=== PATIENT | male | born 1955 | race Caucasian/White ===

== ENCOUNTER 2016-11-03 10:18 | Emergency (ER) | payer MEDICAID, OTHER ==
[~2016-11-03] VITALS: Ht 182.9 cm; Wt 74.8 kg
[~2016-11-03 10:18] MED LIST: INSU3INS6 SQ; LAMO200T32 PO; METF500T4 PO; OXYC5TAB3 PO; TRAM50TA2 PO
[2016-11-03] MEDS ORDERED: LIDOCAINE 1%-EPI 1:100,000 50 ML VIAL IJ ONE (11:00)
[2016-11-03 11:02] VITALS: BP 145/77
== END 2016-11-03 11:29 | disposition home or self-care (01) ==
LOC: ER 10:21
DX: L02.11 Cutaneous abscess of neck (principal); G40.909 Epilepsy, unspecified, not intractable, without status epilepticus; E11.69 Type 2 diabetes mellitus with other specified complication; Z79.4 Long term (current) use of insulin; A04.7 Enterocolitis due to Clostridium difficile
CPT/HCPCS: 10060; 99283; A6402; A6403; J3490; Z7610; A4606

== ENCOUNTER 2016-12-28 11:15 | Inpatient (IN) | payer BC, MEDICAID ==
[~2016-12-28] VITALS: Ht 185.4 cm; Wt 93.9 kg
--- NOTE | 2016-12-28 11:20 | NUR ---
PT BIB [facility] S/P "FOCAL" SEIZURE PER REHAB STAFF. PT DOES NOT APPEAR POSTICTAL. A/OX4. 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 REPORTS LOSS OF BOWEL CONTINENCE PROCESS DESIGN CHEMICAL ENGINEER AFTER WHICH PT C/O 04/24 ABD PAIN. DENIES WATERY STOOLS BUT REPORTS SOFT LOOSE STOOL WITH HX OF CDIFF IN AUGUST. NONAMBULATOY. IN ER BED 11, VSS. RESP EVEN UNLABORED. SKIN WARM NONDIAPHORETIC.
[2016-12-28] MEDS ORDERED: LORAZEPAM INJ 2 MG/ML VIAL IVP ONE (11:30)
[2016-12-28] MEDS ORDERED: ONDANSETRON HCL/PF 4 MG/2 ML VIAL ONE (11:33)
[2016-12-28 11:34] LABS: BASOPHILS % (AUTO) 0.2 % (0.0-2.0); EOSINOPHILS # (AUTO) 0.2 /CMM (0.0-0.7); EOSINOPHILS % (AUTO) 3.6 % (0.0-6.0); HEMATOCRIT 26 % (39-51); HEMOGLOBIN 8.2 g/dL (13.5-17.5); LYMPHOCYTES # (AUTO) 0.9 /CMM (0.8-4.8); LYMPHOCYTES % (AUTO) 15.1 % (20.0-44.0); MEAN CORPUSCULAR HEMOGLOBIN 24 PG (26.0-33.0); MEAN CORPUSCULAR HGB CONC 32 g/dl (31.0-36.0); MEAN CORPUSCULAR VOLUME 75 fL (80-96); MONOCYTES # (AUTO) 0.4 /CMM (0.1-1.30); MONOCYTES % (AUTO) 6.2 % (2.0-12.0); NEUTROPHILS # (AUTO) 4.4 /CMM (1.8-8.9); NEUTROPHILS % (AUTO) 74.9 % (43.0-81.0); PLATELET COUNT (AUTO) 249 /CMM (150-450); RDW COEFFICIENT OF VARIATION 15.2 (11.5-15.0); RED BLOOD CELL COUNT(AUTO) 3.42 MIL/uL (4.5-6.0); WHITE BLOOD COUNT (AUTO) 5.9 K/uL (4.3-11.0)
[2016-12-28] MEDS ORDERED: LORAZEPAM INJ 2 MG/ML VIAL ONE (11:34)
[2016-12-28 11:48] LABS: INR 1.01 (0.87-1.13); PROTHROMBIN TIME 10.6 SECS (9.5-12.7)
[2016-12-28 11:50] LABS: ALBUMIN 2.9 g/dL (3.4-5.0); BILIRUBIN,DIRECT 0.1 mg/dL (0.0-0.2); BILIRUBIN,TOTAL 0.4 mg/dL (0.2-1.0); CALCIUM, SERUM 8.1 mg/dL (8.5-10.1); CREATININE 1.1 mg/dL (0.6-1.3); POTASSIUM 4.2 mmol/L (3.5-5.1); TOTAL PROTEIN, SERUM 7.1 g/dL (6.4-8.2)
[2016-12-28] MEDS ORDERED: ONDANSETRON HCL/PF 4 MG/2 ML VIAL IV ONE (12:00)
--- NOTE | 2016-12-28 12:25 | NUR ---
PT NOTED WITH WHAT APPEARS TO BE BLOOD ON HIS CHIN FROM EARLIER VOMITING. NO VOMITING OR NAUSEA CURRENTLY. MD NOTIFIED.
--- NOTE | 2016-12-28 12:58 | NUR ---
STOOL TESTED FOR OCCULT BLOOD BY DR VALERIO; POSITIVE RESULT. VSS ON 3LPM VIA NC.
[2016-12-28] MEDS ORDERED: IV SET PRIMARY 1 EA INFUS.SET MC ONE (13:15)
[2016-12-28] MEDS ORDERED: PANTOPRAZOLE 40 MG VIAL ONE (13:15)
[2016-12-28] MEDS ORDERED: IV NS 0.9% 1,000 ML ONE (13:15)
[2016-12-28] MEDS ORDERED: IV NS 0.9% 1,000 ML BAG IV ONE (13:30)
[2016-12-28] MEDS ORDERED: PANTOPRAZOLE 40 MG VIAL IV ONE (13:30)
--- NOTE | 2016-12-28 14:13 | NUR ---
REPORT GIVEN TO EDWARDO NOLASCO FOR ADMISSION
[2016-12-28] MEDS ORDERED: ASPI81TA44 PO (14:26)
[2016-12-28] MEDS ORDERED: MULT1TAB11 PO (14:26)
[2016-12-28] MEDS ORDERED: INSU100V11 SQ (14:26)
[2016-12-28] MEDS ORDERED: OXYCODONE (14:26)
[2016-12-28] MEDS ORDERED: ASCO500T9 PO (14:26)
[2016-12-28] MEDS ORDERED: ACET325T53 PO (14:39)
[2016-12-28] MEDS ORDERED: NA P133E RC (14:39)
[2016-12-28] MEDS ORDERED: NITR0.4T6 SL (14:39)
[2016-12-28] MEDS ORDERED: HYDR-3326 PO (14:39)
[2016-12-28] MEDS ORDERED: BISA10SU8 RC (14:39)
[2016-12-28] MEDS ORDERED: MAGN400O6 PO (14:39)
--- NOTE | 2016-12-28 14:42 | NUR ---
REPAGED ATIYA CARPENTER
[2016-12-28] MEDS ORDERED: ONDA4TAB5 PO (14:44)
[2016-12-28] MEDS ORDERED: DIPH25CA83 PO (14:44)
[2016-12-28] MEDS ORDERED: ZOLP5TAB2 PO (14:44)
[2016-12-28] MEDS ORDERED: VIT1CAPS32 PO (14:49)
--- NOTE | 2016-12-28 14:52 | NUR ---
RESTING COMFORTABLY IN ER BED 11. VSS. PT CLEANED AND DIAPER CHANGED.
[2016-12-28 15:00] VITALS: BP 125/74
--- NOTE | 2016-12-28 15:00 | NUR ---
RN NOTES RECEIVED PT ON FROM ER , A/Ox4. RESPIRATION EVEN AND UNLABORED, ON 2L O2 N/C , NO SOB NOTED , R HAND IV SITE #20 CDI, BI LOWER EXTREMITIES +3 EDEMA AND REDNESS NOTED , ADMISSION PHOTO TAKEN , ,NO GI BLEEDING AT THIS TIME . PT HAS LARGE SEMI FORM STOOL AND PT STATED WAS + FOR GI BLEED IN AUGUST [address] ON C-DIFF PRECAUTION AT THIS TIME . SR UP x3. CALL LIGHT WITHIN EASY REACH , PT ORIENTED TO ROOM AND SURROUNDING , CONTINUE TO MONITOR PT CLSOELY AND NOTIFY MD FOR ANY SIGNIFICANT CHANGES.
--- NOTE | 2016-12-28 15:15 | NUR ---
PT TRANSPORTED TO [facility] IN STABLE CONDITION. PT WAS ABLE TO TRANSFER SELF FROM ER BED TO [facility] BED WITH 1 ASSIST, AMBULATING 3 STEPS. PT HAD ANOTHER BOWEL MOVEMENT DURING TRANSFER.
[2016-12-28 16:00] VITALS: BP 125/74
--- NOTE | 2016-12-28 16:00 | NUR ---
PT. HAD EPISODE OF MELENA W/ STRONG ODOR.BLACK TARRY STOOL.
[2016-12-28] MEDS ORDERED: BISACODYL SUPP (10 MG) 10 MG/SUPP.RECT SUPP.RECT RC PRN (16:30)
[2016-12-28] MEDS ORDERED: ZOLPIDEM TARTRATE 5 MG TABLET PO PRN ×2 (16:30)
[2016-12-28] MEDS ORDERED: ACETAMINOPHEN 325 MG TABLET PO PRN (16:30)
[2016-12-28] MEDS ORDERED: diphenhydrAMINE HCL 25 MG CAPSULE PO PRN (16:30)
[2016-12-28] MEDS ORDERED: ONDANSETRON 4 MG TAB.RAPDIS SL PRN (16:30)
[2016-12-28] MEDS ORDERED: Z GUARD REMEDY 2 OZ OINT TP PRN (16:30)
[2016-12-28] MEDS ORDERED: NITROGLYCERIN 0.4 MG/TAB BOTTLE SL PRN (16:30)
--- NOTE | 2016-12-28 16:37 | NUR ---
DR. MONSALVE CALLED AND NOTIFIED REGARDING PT. MELENA AND H/H W/ NEW ORDERS LEFT AND CARRIED OUT.WILL KEEP NPO PER MD.
[2016-12-28] MEDS ORDERED: PANTOPRAZOLE 40 MG VIAL INJ SCH (17:00)
[2016-12-28] MEDS ORDERED: IV NS 0.9% 1,000 ML BAG IV PRN (17:00)
[2016-12-28] MEDS ORDERED: PANTOPRAZOLE 40 MG TABLET.DR PO SCH (17:00)
[2016-12-28] MEDS: INSULIN ASPART NOVOLOG 100 UNIT/ML CARTRIDGE SQ SCH (17:30)
[2016-12-28] MEDS ORDERED: IV SET PRIMARY PUMP SET 1 EA INFUS.SET MC ONE ×2 (17:32→19:57)
[2016-12-28] MEDS: SUCRALFATE 1 G/10 ML UDC PO SCH ×2 (17:37→22:32)
[2016-12-28] MEDS: METFORMIN 500 MG TABLET PO SCH (17:37)
[2016-12-28] MEDS: IV NS 0.9% 1,000 ML IV PRN (17:37)
--- NOTE | 2016-12-28 17:45 | NUR ---
RN NOTES DR CARPENTER NOTIFIED REGARDING TROPONIN 1.790 AND [address] Shayla CARPENTER ORDER .
[2016-12-28 18:59] LABS: IRON, SERUM 20 ug/dl (50-175); TOTAL IRON BINDING CAPACITY 327 ug/dl (250-450)
[2016-12-28] MEDS ORDERED: POTASSIUM PHOSPHATE MM 15 MMOL in IV D5W 250 ML IV SCH (19:00)
[2016-12-28 19:05] LABS: FERRITIN 57 ng/mL (8-388)
[2016-12-28 20:00] VITALS: BP 92/56
--- NOTE | 2016-12-28 20:00 | NUR ---
received pt from day shift, s/p GI bleed and seizure activity, a/o x4, SR, PVCs, on 2L 02 sat well, NPO, diaper on, BL cellulitis and edema, no bleeding and seizure activity noted, v/s stable, no pain, pt turns and repositions by himself.
[2016-12-28] MEDS: POTASSIUM PHOSPHATE MM 7.5 MMOL in IV D5W 100 ML IV SCH ×2 (20:03→22:31)
[2016-12-28] MEDS: LamoTRIgine 25 MG TABLET PO SCH (20:16)
[2016-12-28] MEDS: PANTOPRAZOLE 40 MG VIAL IV SCH (20:16)
[2016-12-28] MEDS ORDERED: INSULIN REGULAR, HUMAN 100 UNIT/ML 3 ML VIAL SQ PRN (21:30)
[2016-12-28] MEDS ORDERED: DEXTROSE 50%-WATER 50 ML DISP.SYRIN IV PRN (21:30)
[2016-12-28] MEDS ORDERED: MAGNESIUM HYDROXIDE 30 ML UDC PO PRN (22:00)
[2016-12-28] MEDS: INSULIN DETEMIR 100 UNIT/ML CARTRIDGE SQ SCH (22:40)
[2016-12-29] VITALS (19 sets, daily range): BP systolic 94–140; BP diastolic 57–88
[2016-12-29] MEDS ORDERED: BLOOD SUGAR DIAGNOSTIC 1 EACH STRIP IN SCH
--- NOTE | 2016-12-29 04:19 | NUR ---
pt is resting in the bed, v/s stable, no pain, no bleeding noted, pt cleaned and changed, no seizure activity.
[2016-12-29] MEDS: ONDANSETRON HCL/PF 4 MG/2 ML VIAL IVP PRN (04:26)
[2016-12-29] MEDS: IV NS 0.9% 1,000 ML IV PRN ×2 (04:26→23:19)
[2016-12-29 06:41] LABS: BASOPHILS % (AUTO) 0.2 % (0.0-2.0); EOSINOPHILS # (AUTO) 0.2 /CMM (0.0-0.7); EOSINOPHILS % (AUTO) 4.1 % (0.0-6.0); HEMATOCRIT 24 % (39-51); HEMOGLOBIN 7.7 g/dL (13.5-17.5); LYMPHOCYTES # (AUTO) 0.9 /CMM (0.8-4.8); LYMPHOCYTES % (AUTO) 15.4 % (20.0-44.0); MEAN CORPUSCULAR HEMOGLOBIN 24 PG (26.0-33.0); MEAN CORPUSCULAR HGB CONC 32 g/dl (31.0-36.0); MEAN CORPUSCULAR VOLUME 76 fL (80-96); MONOCYTES # (AUTO) 0.4 /CMM (0.1-1.30); MONOCYTES % (AUTO) 6.3 % (2.0-12.0); NEUTROPHILS # (AUTO) 4.5 /CMM (1.8-8.9); PLATELET COUNT (AUTO) 219 /CMM (150-450); RDW COEFFICIENT OF VARIATION 16.5 (11.5-15.0); RED BLOOD CELL COUNT(AUTO) 3.16 MIL/uL (4.5-6.0)
[2016-12-29 07:01] LABS: ALBUMIN 2.6 g/dL (3.4-5.0); BILIRUBIN,TOTAL 0.5 mg/dL (0.2-1.0); CALCIUM, SERUM 8.2 mg/dL (8.5-10.1); CREATININE 0.9 mg/dL (0.6-1.3); MAGNESIUM 1.9 mg/dL (1.8-2.4); PHOSPHORUS 3.8 mg/dL (2.5-4.9); POTASSIUM 4.1 mmol/L (3.5-5.1); TOTAL PROTEIN, SERUM 6.5 g/dL (6.4-8.2)
[2016-12-29 07:17] LABS: THYROID STIMULATING HORMONE 1.378 uIU/mL (0.358-3.74)
--- NOTE | 2016-12-29 07:25 | NUR ---
RN INITIAL NOTES: Rec'd pt asleep on bed, A&Ox3, not in any distress. Pt on NC at 2lpm, no SOB noted. On telemonitor SR at 75's w/ occasional PVC's. Pt has R hand G20 w/ NS at 75 cc/hr, patent, C/D/I, no signs of infection/ infiltration noted. Instructed NPO for EGD procedure. Verbalized understanding. Provided comfort & safety measures. Call light placed w/in reached. Bed kept low & in locked position. Will continue to monitor.
[2016-12-29] MEDS: SUCRALFATE 1 G/10 ML UDC PO SCH ×4 (07:30→21:33)
[2016-12-29] MEDS: INSULIN ASPART NOVOLOG 100 UNIT/ML CARTRIDGE SQ SCH ×3 (07:30→17:50)
[2016-12-29 08:04] LABS: RETICULOCYTE COUNT 1.2 % (0.6-2.5)
[2016-12-29 08:33] LABS: URIC ACID 5.2 mg/dL (2.6-7.2)
--- NOTE | 2016-12-29 08:52 | NUR ---
WOUND CARE CONSULT: PATIENT SEEN AND SKIN ASSESSMENT DONE. PATIENT ALERT, ORIENTED, AMBULATORY, INDEPENDENT WITH BED MOBILITY, YRN 19, CONTINENT. PATIENT STATED CURRENTLY HAS BOUTS OF DIARRHEA, HAS URGE INCONTINENCE. PATIENT PRESENTS ON ADMISSION WITH SKIN INTACT, BILATERAL LOWER LEGS REDNESS WITH SLIGHT SWELLING, DEFER TO MD. RECOMMENDATIONS TO KEEP SKIN CLEAN AND DRY, MOISTURE PROTECTION WITH Z GUARD PRN ORDERED DISCUSSED WITH NURSING STAFF. MD IN AGREEMENT WITH PLAN OF CARE. Addendum: 12/29/16 at 0854 by QUOC GE WNDNU Amended: Links added.
[2016-12-29] MEDS ORDERED: DEXTROSE 50%-WATER 50 ML DISP.SYRIN IV PRN (09:00)
[2016-12-29] MEDS: LamoTRIgine 25 MG TABLET PO SCH ×2 (09:00→21:33)
[2016-12-29] MEDS: ASCORBIC ACID 500 MG TABLET PO SCH (09:00)
[2016-12-29] MEDS: METFORMIN 500 MG TABLET PO SCH ×2 (09:00→17:11)
[2016-12-29] MEDS: MULTIVITAMINS,THERAPEUTIC 1 UDTAB TABLET PO SCH (09:00)
[2016-12-29] MEDS: PANTOPRAZOLE 40 MG VIAL IV SCH ×2 (09:24→21:42)
[2016-12-29] MEDS: INSULIN REGULAR, HUMAN 100 UNIT/ML 3 ML VIAL SQ PRN ×2 (09:25→17:51)
--- NOTE | 2016-12-29 10:20 | NUR ---
RN NOTES: Seen & examined by Dr. Patel.
--- NOTE | 2016-12-29 10:30 | NUR ---
RN NOTES: Seen & examined by Dr. Fraser.
--- NOTE | 2016-12-29 10:40 | NUR ---
RN NOTES: Pt to OR for EGD procedure.
--- NOTE | 2016-12-29 11:45 | NUR ---
RN NOTES: Rec'd pt from OR s/p EGD w/ VS as follows: BP 121/73, T 98.1, HR 74, RR 18, O2 sat 96%. Placed CL w/in reached. Bed kept low & in locked pos.
[2016-12-29 12:23] LABS: VIT D, 25-HYDROXY 10.2 ng/mL (30.0-100.0)
[2016-12-29] MEDS: BLOOD SUGAR DIAGNOSTIC 1 EACH STRIP IN SCH ×2 (12:56→17:43)
--- NOTE | 2016-12-29 13:38 | NUR ---
RN NOTES: Informed Dr. Fraser re: increasing Trop I result.
[2016-12-29] MEDS: oxyCODONE IR immediate release 5 MG CAPSULE PO PRN (13:56)
[2016-12-29] MEDS ORDERED: IV NS 0.9% 250 ML IV ONE (14:07)
[2016-12-29] MEDS ORDERED: BLOOD IV SET 1 EA INFUS.SET MC ONE (14:07)
--- NOTE | 2016-12-29 14:30 | NUR ---
RN NOTES: Pt had 1 loose BM. Stool sample sent for C. Diff exam.
--- NOTE | 2016-12-29 15:40 | NUR ---
RN Notes: Blood transfusion started at 1420hrs, instructed patient to press call light immediately if with fever, chills, back pain, pruritus, chest pain or any untoward signs and symptoms noted. Patient verbalized understanding of instructions.
--- NOTE | 2016-12-29 17:49 | NUR ---
RN NOTES: At 1735hrs BT terminated without ill effects, no signs and symptoms of distress noted.
--- NOTE | 2016-12-29 18:35 | NUR ---
RN CLOSING NOTES: Pt remained stable, not in any distress. BT of 1 u PRBC done w/o BT reactions noted. Consent done for CT Angio procedure sched barbara. Informed pt NPO post midnight (no coffee/tea), verbalized understanding. Pt R hand IV line, patent, intact, no signs of infection/ infiltration. All needs attended. CL placed w/in reached. Provided comfort & safety measures. Pt endorsed to PM RN for SULMA.
--- NOTE | 2016-12-29 19:25 | NUR ---
RN INITIAL NOTE RECEIVED PT IN NO ACUTE DISTRESS IN BED. PT IS A/O X 4 AND ABLE TO MAKE NEEDS KNOWN. PT IS ON O2 VIA NC @ 2LPM AND TOLERATING WELL WITH O2 SAT 2 98%. PT IS ON TELE WITH SR ON THE MONITOR. PT WILL BE NPO AFTER MIDNIGHT FOR CT ANGIO IN AM. PT DENIES ANY SOB, DIFFICULTY BREATHING OR PAIN AT THIS TIME. PT HAS RH 20G THAT IS CLEAN DRY INTACT AND PATENT WITH NS @ 75 ML/HR. PT HAS LAC 20G THAT IS CLEAN DRY INTACT AND PATENT WITH SALINE FLUSH. IV IS SALINE LOCKED FOR PROCEDURE IN AM. BED IN LOW LOCK POSITION WITH RIALS UP X 2. CALL LIGHT WITHIN REACH AND ALL SAFETY MEASURES ENSURED AND CARRIED OUT. WILL CONTINUE TO MONITOR PT.
[2016-12-29] MEDS: INSULIN DETEMIR 100 UNIT/ML CARTRIDGE SQ SCH (21:42)
[2016-12-30] VITALS (11 sets, daily range): BP systolic 98–131; BP diastolic 54–76
[2016-12-30] MEDS: BLOOD SUGAR DIAGNOSTIC 1 EACH STRIP IN SCH ×4 (05:20→17:36)
[2016-12-30 06:30] LABS: BASOPHILS % (AUTO) 0.3 % (0.0-2.0); EOSINOPHILS # (AUTO) 0.2 /CMM (0.0-0.7); EOSINOPHILS % (AUTO) 4.5 % (0.0-6.0); HEMATOCRIT 27 % (39-51); HEMOGLOBIN 8.6 g/dL (13.5-17.5); LYMPHOCYTES # (AUTO) 1.1 /CMM (0.8-4.8); LYMPHOCYTES % (AUTO) 19.3 % (20.0-44.0); MEAN CORPUSCULAR HEMOGLOBIN 24 PG (26.0-33.0); MEAN CORPUSCULAR HGB CONC 32 g/dl (31.0-36.0); MEAN CORPUSCULAR VOLUME 76 fL (80-96); MONOCYTES # (AUTO) 0.4 /CMM (0.1-1.30); MONOCYTES % (AUTO) 7.1 % (2.0-12.0); NEUTROPHILS # (AUTO) 3.8 /CMM (1.8-8.9); NEUTROPHILS % (AUTO) 68.8 % (43.0-81.0); PLATELET COUNT (AUTO) 206 /CMM (150-450); RED BLOOD CELL COUNT(AUTO) 3.56 MIL/uL (4.5-6.0); WHITE BLOOD COUNT (AUTO) 5.6 K/uL (4.3-11.0)
[2016-12-30 06:36] LABS: CALCIUM, SERUM 8.2 mg/dL (8.5-10.1); CREATININE 0.9 mg/dL (0.6-1.3); MAGNESIUM 1.8 mg/dL (1.8-2.4); PHOSPHORUS 3.4 mg/dL (2.5-4.9); POTASSIUM 4.1 mmol/L (3.5-5.1)
--- NOTE | 2016-12-30 06:37 | NUR ---
RN CLOSING NOTE PT REMAINS IN NO ACUTE DISTRESS IN BED. PT DID NOT HAVE ANY SIGNIFICANT CHANGE IN CONDITION DURING SHIFT. WILL ENDORSE CARE TO AM RN FOR CONTINUITY OF CARE. ALL NEEDS MET ALL ORDERS CARRIED OUT.
[2016-12-30] MEDS: SUCRALFATE 1 G/10 ML UDC PO SCH ×4 (07:30→21:47)
[2016-12-30] MEDS: INSULIN ASPART NOVOLOG 100 UNIT/ML CARTRIDGE SQ SCH ×3 (07:30→17:45)
--- NOTE | 2016-12-30 07:30 | NUR ---
RN INITIAL NOTES RECEIVED PT ON BED, SLEEPING, NC IN PLACE 2 L/MIN, NO SOB, NO DISTRESS AT THIS TIME, ON TELE MONITOR SR WITH OCCASIONAL PVCS AT RATE OF 76 BPM, PT IS NPO FOR CT ANGIOGRAM THIS AM, 2 IV SITES L AC 20 G HL INTACT, FLUSHED, AND R HAND 20 G, IV FLUIDS RUNNING AT 75 ML/H, BLE EDEMA NOTED, PT USES URINAL, SAFETY MAINTAINED, SIDE RAILS X3 UP, CALL LIGHT WITHIN REACH, BED IN LOW AND LOCKED SEMI HUTSON POSITION, WILL CONTINUE TO MONITOR.
[2016-12-30] MEDS: METFORMIN 500 MG TABLET PO SCH ×2 (09:00→17:00)
[2016-12-30] MEDS: ASCORBIC ACID 500 MG TABLET PO SCH (09:00)
[2016-12-30] MEDS: MULTIVITAMINS,THERAPEUTIC 1 UDTAB TABLET PO SCH (09:00)
[2016-12-30] MEDS: PANTOPRAZOLE 40 MG VIAL IV SCH ×2 (09:00→21:47)
[2016-12-30] MEDS: LamoTRIgine 25 MG TABLET PO SCH ×2 (09:00→21:47)
[2016-12-30] MEDS ORDERED: LABETALOL 20 MG/4 ML VIAL IV ONE (10:00)
[2016-12-30] MEDS ORDERED: LIDOCAINE HCL/PF 1% 30 ML SDV IJ SCH (10:00)
[2016-12-30] MEDS ORDERED: ERGOCALCIFEROL (VITAMIN D 2) 50,000 UNIT CAPSULE PO SCH (10:00)
[2016-12-30] MEDS ORDERED: NITROGLYCERIN 0.4 MG/TAB BOTTLE SL PRN (10:00)
[2016-12-30] MEDS ORDERED: IV NS 0.9% 250 ML IV ONE (10:38)
[2016-12-30] MEDS ORDERED: IOHEXOL-350 100 ML VIAL IV ONE (10:38)
[2016-12-30] MEDS ORDERED: CT SWABBABLE VALVE TRANS SET 1 EA INFUS.SET MC ONE (10:38)
[2016-12-30 11:35] LABS: *SPE A/G RATIO 0.9 (0.7-1.7); *SPE ALBUMIN 3.1 g/dL (2.9-4.4); *SPE ALPHA-1-GLOBULIN 0.3 g/dL (0.0-0.4); *SPE ALPHA-2-GLOBULIN 0.9 g/dL (0.4-1.0); *SPE BETA GLOBULIN 0.9 g/dL (0.7-1.3); *SPE GLOBULIN, TOTAL 3.5 g/dL (2.2-3.9); *SPE M-SPIKE Not Observed g/dL (Not Observed); *SPE PROTEIN TOTAL 6.6 g/dL (6.0-8.5); *SPEGAMMA GLOBULIN 1.4 g/dL (0.4-1.8)
[2016-12-30] MEDS ORDERED: METOPROLOL TARTRATE INJ 5 MG/5 ML AMPUL IVP ONE ×2 (12:30→12:37)
[2016-12-30] MEDS ORDERED: METOPROLOL TARTRATE INJ 5 MG/5 ML AMPUL IVP PRN (12:39)
--- NOTE | 2016-12-30 13:00 | NUR ---
RN NOTES LABETALOL 5ML IVP WAS GIVEN BY GAURAV ALVAREZ FAMILY CENTERED SPECIALIST, MANUALLY ADMINISTRATION
[2016-12-30] MEDS: HYDROCODONE/APAP 5/325MG 1 EACH TABLET PO PRN ×2 (16:06→21:54)
[2016-12-30] MEDS ORDERED: POTASSIUM CHLORIDE 20 MEQ TAB.PRT.SR PO ONE (16:30)
[2016-12-30] MEDS ORDERED: BUMETANIDE INJ 4 MG in IV NS 0.9% 24 ML IV ONE (16:30)
[2016-12-30] MEDS: IV NS 0.9% 1,000 ML IV PRN (16:54)
[2016-12-30] MEDS ORDERED: SECONDARY IV SET 1 EA INFUS.SET MC ONE (17:21)
[2016-12-30] MEDS: INSULIN REGULAR, HUMAN 100 UNIT/ML 3 ML VIAL SQ PRN (17:44)
--- NOTE | 2016-12-30 19:40 | NUR ---
RN INITIAL NOTE RECEIVED PT IN NO ACUTE DISTRESS IN BED. PT IS A/O X 4 AND ABLE TO MAKE NEEDS KNOWN. PT IS ON O2 VIA NC @ 2LPM AND TOLERATING WELL WITH O2 SAT 2 98%. PT IS ON TELE WITH SR ON THE MONITOR.PT DENIES ANY SOB, DIFFICULTY BREATHING OR PAIN AT THIS TIME. PT HAS RH 20G THAT IS CLEAN DRY INTACT AND PATENT WITH NS @ 75 ML/HR. PT HAS LAC 20G THAT IS CLEAN DRY INTACT AND PATENT WITH SALINE FLUSH. BED IN LOW LOCK POSITION WITH RIALS UP X 2. CALL LIGHT WITHIN REACH AND ALL SAFETY MEASURES ENSURED AND CARRIED OUT. WILL CONTINUE TO MONITOR PT.
[2016-12-30] MEDS: ONDANSETRON HCL/PF 4 MG/2 ML VIAL IVP PRN (20:06)
[2016-12-30] MEDS: INSULIN DETEMIR 100 UNIT/ML CARTRIDGE SQ SCH (21:58)
[2016-12-31] VITALS: BP 112/59
[2016-12-31 04:00] VITALS: BP 124/79
[2016-12-31 06:42] LABS: CALCIUM, SERUM 8.2 mg/dL (8.5-10.1); POTASSIUM 3.8 mmol/L (3.5-5.1)
[2016-12-31] MEDS: BLOOD SUGAR DIAGNOSTIC 1 EACH STRIP IN SCH ×5 (06:44→23:03)
[2016-12-31] MEDS: INSULIN ASPART NOVOLOG 100 UNIT/ML CARTRIDGE SQ SCH ×3 (06:44→18:16)
[2016-12-31 06:48] LABS: BASOPHILS % (AUTO) 0.2 % (0.0-2.0); EOSINOPHILS # (AUTO) 0.3 /CMM (0.0-0.7); EOSINOPHILS % (AUTO) 5.8 % (0.0-6.0); HEMATOCRIT 29 % (39-51); HEMOGLOBIN 9.3 g/dL (13.5-17.5); LYMPHOCYTES # (AUTO) 1.3 /CMM (0.8-4.8); LYMPHOCYTES % (AUTO) 22.9 % (20.0-44.0); MEAN CORPUSCULAR HEMOGLOBIN 25 PG (26.0-33.0); MEAN CORPUSCULAR HGB CONC 33 g/dl (31.0-36.0); MEAN CORPUSCULAR VOLUME 76 fL (80-96); MONOCYTES # (AUTO) 0.5 /CMM (0.1-1.30); MONOCYTES % (AUTO) 8.4 % (2.0-12.0); NEUTROPHILS # (AUTO) 3.7 /CMM (1.8-8.9); NEUTROPHILS % (AUTO) 62.7 % (43.0-81.0); PLATELET COUNT (AUTO) 240 /CMM (150-450); RED BLOOD CELL COUNT(AUTO) 3.75 MIL/uL (4.5-6.0); WHITE BLOOD COUNT (AUTO) 5.8 K/uL (4.3-11.0)
--- NOTE | 2016-12-31 07:38 | NUR ---
RN CLOSING NOTE PT REMAINS IN NO ACUTE DISTRESS IN BED. PT DID NOT HAVE ANY SIGNIFICANT CHANGE IN CONDITION DURING SHIFT. WILL ENDORSE REPORT TO AM RN FOR CONTINUITY OF CARE. ALL NEEDS MET ALL ORDERS CARRIED OUT.
[2016-12-31 08:00] VITALS: BP 126/57
[2016-12-31] MEDS: METFORMIN 500 MG TABLET PO SCH ×2 (09:00→17:00)
[2016-12-31] MEDS: MULTIVITAMINS,THERAPEUTIC 1 UDTAB TABLET PO SCH (09:34)
[2016-12-31] MEDS: SUCRALFATE 1 G/10 ML UDC PO SCH ×4 (09:34→21:33)
[2016-12-31] MEDS: PANTOPRAZOLE 40 MG VIAL IV SCH ×2 (09:35→21:33)
[2016-12-31] MEDS: LamoTRIgine 25 MG TABLET PO SCH ×2 (09:35→21:33)
[2016-12-31] MEDS: ASCORBIC ACID 500 MG TABLET PO SCH (09:35)
[2016-12-31 12:00] VITALS: BP 122/78
[2016-12-31] MEDS: IV NS 0.9% 1,000 ML IV PRN (12:35)
[2016-12-31] MEDS: HYDROCODONE/APAP 5/325MG 1 EACH TABLET PO PRN ×2 (12:36→16:29)
[2016-12-31] MEDS ORDERED: NS 0.9% IV ONE ×2 (12:40→14:30)
[2016-12-31] MEDS ORDERED: BUMETANIDE IV ONE ×2 (12:40→14:30)
[2016-12-31] MEDS ORDERED: BUMETANIDE INJ 4 MG in IV NS 0.9% 24 ML IV ONE (15:00)
[2016-12-31 16:00] VITALS: BP 105/64
[2016-12-31] MEDS: ONDANSETRON HCL/PF 4 MG/2 ML VIAL IVP PRN (16:27)
[2016-12-31 20:10] VITALS: BP 111/74
[2016-12-31] MEDS: INSULIN DETEMIR 100 UNIT/ML CARTRIDGE SQ SCH (22:00)
--- NOTE | 2016-12-31 23:03 | NUR ---
RN NOTES: BLOOD SUGAR IS 181 MG/DL. PATIENT REFUSED TO TAKE THE INSULIN. WILL CONTINUE TO MONITOR.
[2017-01-01] VITALS: BP 128/75
[2017-01-01] MEDS: ONDANSETRON HCL/PF 4 MG/2 ML VIAL IVP PRN ×2 (00:08→08:37)
[2017-01-01] MEDS: HYDROCODONE/APAP 5/325MG 1 EACH TABLET PO PRN (00:08)
[2017-01-01 04:00] VITALS: BP 102/68
[2017-01-01] MEDS: BLOOD SUGAR DIAGNOSTIC 1 EACH STRIP IN SCH ×4 (05:18→23:57)
--- NOTE | 2017-01-01 05:19 | NUR ---
RN NOTES: PATIENT REFUSES TO TAKE INSULIN. WILL CONTINUE TO MONITOR.
[2017-01-01] MEDS: INSULIN ASPART NOVOLOG 100 UNIT/ML CARTRIDGE SQ SCH ×3 (07:13→17:24)
[2017-01-01] MEDS: IV NS 0.9% 1,000 ML IV PRN (07:13)
[2017-01-01 07:28] LABS: BASOPHILS % (AUTO) 0.3 % (0.0-2.0); EOSINOPHILS # (AUTO) 0.3 /CMM (0.0-0.7); EOSINOPHILS % (AUTO) 5.8 % (0.0-6.0); HEMATOCRIT 29 % (39-51); HEMOGLOBIN 9.3 g/dL (13.5-17.5); LYMPHOCYTES # (AUTO) 1.1 /CMM (0.8-4.8); MEAN CORPUSCULAR HEMOGLOBIN 25 PG (26.0-33.0); MEAN CORPUSCULAR HGB CONC 32 g/dl (31.0-36.0); MEAN CORPUSCULAR VOLUME 77 fL (80-96); MONOCYTES # (AUTO) 0.4 /CMM (0.1-1.30); MONOCYTES % (AUTO) 7.5 % (2.0-12.0); NEUTROPHILS # (AUTO) 3.8 /CMM (1.8-8.9); NEUTROPHILS % (AUTO) 66.4 % (43.0-81.0); PLATELET COUNT (AUTO) 249 /CMM (150-450); RDW COEFFICIENT OF VARIATION 16.6 (11.5-15.0); RED BLOOD CELL COUNT(AUTO) 3.76 MIL/uL (4.5-6.0); WHITE BLOOD COUNT (AUTO) 5.7 K/uL (4.3-11.0)
--- NOTE | 2017-01-01 07:30 | NUR ---
RN NOTES DR SIMONS AT BEDSIDE, ASSISTED MD WITH BONE MARROW BIOPSY PROCEDURE AT BEDSIDE.
[2017-01-01 07:44] LABS: ALBUMIN 2.8 g/dL (3.4-5.0); BILIRUBIN,TOTAL 0.4 mg/dL (0.2-1.0); CALCIUM, SERUM 8.5 mg/dL (8.5-10.1); CREATININE 1.2 mg/dL (0.6-1.3); MAGNESIUM 1.6 mg/dL (1.8-2.4); PHOSPHORUS 4.8 mg/dL (2.5-4.9); POTASSIUM 3.9 mmol/L (3.5-5.1); TOTAL PROTEIN, SERUM 6.8 g/dL (6.4-8.2)
[2017-01-01 08:00] VITALS: BP 147/74
--- NOTE | 2017-01-01 08:00 | NUR ---
RN NOTES PT C/O FEELING NAUSEATED AND C/O PAIN PS 10/10 ON BACK AND ABDOMEN, RUDOLPH ADMINISTER ZOFRAN AND OXY PRN
[2017-01-01 08:15] LABS: TROPONIN I 0.647 ng/mL (0.00-0.056)
--- NOTE | 2017-01-01 08:23 | NUR ---
nurse to clarify order with ordering physician. nurse to call back.
[2017-01-01] MEDS: METFORMIN 500 MG TABLET PO SCH ×3 (08:37→17:00)
[2017-01-01] MEDS: ASCORBIC ACID 500 MG TABLET PO SCH (08:37)
[2017-01-01] MEDS: oxyCODONE IR immediate release 5 MG CAPSULE PO PRN ×2 (08:37→17:23)
[2017-01-01] MEDS: SUCRALFATE 1 G/10 ML UDC PO SCH ×4 (08:37→21:18)
[2017-01-01] MEDS: LamoTRIgine 25 MG TABLET PO SCH ×2 (08:37→21:18)
[2017-01-01] MEDS: PANTOPRAZOLE 40 MG VIAL IV SCH ×2 (08:37→21:18)
[2017-01-01] MEDS: MULTIVITAMINS,THERAPEUTIC 1 UDTAB TABLET PO SCH (08:38)
--- NOTE | 2017-01-01 11:20 | NUR ---
RN NOTES IVF NS DC'D BY DR MONTOYA
--- NOTE | 2017-01-01 11:30 | NUR ---
RN NOTES PT PICKED UP FOR CHEST CT, ACCCOMPANIED BY TRANSPORT MATILDE VIA WHEELCHAIR
[2017-01-01] MEDS ORDERED: IOHEXOL-300 100 ML VIAL IV ONE (11:31)
[2017-01-01 12:00] VITALS: BP 124/75
[2017-01-01] MEDS ORDERED: BUMETANIDE INJ 8 MG in IV NS 0.9% 48 ML IV ONE (12:00)
--- NOTE | 2017-01-01 12:00 | NUR ---
RN NOTES PT CAME BACK FROM CT
[2017-01-01] MEDS ORDERED: IV SET PRIMARY PUMP SET 1 EA INFUS.SET MC ONE (13:22)
[2017-01-01] MEDS: POTASSIUM CHLORIDE 20 MEQ TAB.PRT.SR PO SCH ×3 (13:23→14:22)
[2017-01-01] MEDS: Magnesium 1GM/D5W 100ML PREMIX 100 ML IV SCH ×2 (13:25→14:21)
[2017-01-01] MEDS: INSULIN REGULAR, HUMAN 100 UNIT/ML 3 ML VIAL SQ PRN (13:34)
[2017-01-01 16:00] VITALS: BP 137/77
[2017-01-01] MEDS ORDERED: POTASSIUM CHLORIDE 20 MEQ TAB.PRT.SR PO ONE (16:30)
--- NOTE | 2017-01-01 19:15 | NUR ---
RN NOTES PT RESTING IN BED, WATCHING TV. NO ACUTE CHANGE IN CONDITION NOTED. ALL DUE MEDS GIVEN, NEEDS ATTENDED. ONGOING BU,EX DRIP ORDERED INFUSING ON R FA. DENIES PAIN/DISCOMFORT AT THIS TIME. ENDORSED TO ALEXA NOLASCO FOR CONTINUITY OF CARE
[2017-01-01 20:00] VITALS: BP 103/61
[2017-01-01] MEDS: INSULIN DETEMIR 100 UNIT/ML CARTRIDGE SQ SCH (22:32)
--- NOTE | 2017-01-01 22:45 | NUR ---
MS RN ENDORSEMENT NOTE RECEIVED PT FROM GAURAV LIU, CURRENTLY SLEEPING BUT EASILY AROUSED, ORIENTED X4, NO COMPLAINT OF PAIN OR RESPIRATORY DISTRESS NOTED DURING PHYSICAL ASSESSMENT, PT IS CLEAN/DRY AND COMFORTABLE, SAFETY MEASURES IN PLACE, NEEDS WILL BE ANTICIPATED AND ATTENDED TO, WILL CONTINUE TO MONITOR HOURLY.
--- NOTE | 2017-01-01 23:59 | NUR ---
AFTER CHECKING PT'S BS LEVEL OF 222 WAS NOTED, PT REFUSES INSULIN STATING THAT HE HAS EXPERIENCED HYPOGLYCEMIA WHEN INSULIN IS PROVIDED AT THIS BLOOD SUGAR LEVEL AND AT THIS TIME OF THE DAY.
[2017-01-02] MEDS: ONDANSETRON HCL/PF 4 MG/2 ML VIAL IVP PRN ×2 (01:53→17:44)
[2017-01-02 04:00] VITALS: BP 113/62
[2017-01-02 04:11] VITALS: BP 113/62
[2017-01-02] MEDS: BLOOD SUGAR DIAGNOSTIC 1 EACH STRIP IN SCH ×3 (05:45→17:40)
--- NOTE | 2017-01-02 05:50 | NUR ---
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
[2017-01-02 06:33] LABS: BASOPHILS % (AUTO) 0.3 % (0.0-2.0); EOSINOPHILS # (AUTO) 0.4 /CMM (0.0-0.7); EOSINOPHILS % (AUTO) 5.9 % (0.0-6.0); HEMATOCRIT 31 % (39-51); HEMOGLOBIN 9.8 g/dL (13.5-17.5); LYMPHOCYTES # (AUTO) 1.1 /CMM (0.8-4.8); LYMPHOCYTES % (AUTO) 17.3 % (20.0-44.0); MEAN CORPUSCULAR HEMOGLOBIN 24 PG (26.0-33.0); MEAN CORPUSCULAR HGB CONC 32 g/dl (31.0-36.0); MEAN CORPUSCULAR VOLUME 77 fL (80-96); MONOCYTES # (AUTO) 0.5 /CMM (0.1-1.30); MONOCYTES % (AUTO) 7.3 % (2.0-12.0); NEUTROPHILS # (AUTO) 4.5 /CMM (1.8-8.9); NEUTROPHILS % (AUTO) 69.2 % (43.0-81.0); PLATELET COUNT (AUTO) 296 /CMM (150-450); RDW COEFFICIENT OF VARIATION 16.9 (11.5-15.0); RED BLOOD CELL COUNT(AUTO) 4.04 MIL/uL (4.5-6.0); WHITE BLOOD COUNT (AUTO) 6.5 K/uL (4.3-11.0)
[2017-01-02 06:40] LABS: ALBUMIN 3.1 g/dL (3.4-5.0); BILIRUBIN,TOTAL 0.4 mg/dL (0.2-1.0); CALCIUM, SERUM 8.5 mg/dL (8.5-10.1); CREATININE 1.3 mg/dL (0.6-1.3); PHOSPHORUS 4.6 mg/dL (2.5-4.9); POTASSIUM 4.2 mmol/L (3.5-5.1); TOTAL PROTEIN, SERUM 7.4 g/dL (6.4-8.2)
[2017-01-02] MEDS: INSULIN ASPART NOVOLOG 100 UNIT/ML CARTRIDGE SQ SCH ×3 (07:30→17:30)
[2017-01-02 08:00] VITALS: BP 122/76
[2017-01-02] MEDS: METFORMIN 500 MG TABLET PO SCH ×2 (08:16→16:13)
[2017-01-02] MEDS: SUCRALFATE 1 G/10 ML UDC PO SCH ×4 (08:16→21:25)
[2017-01-02] MEDS: PANTOPRAZOLE 40 MG VIAL IV SCH ×2 (08:16→20:07)
[2017-01-02] MEDS: LamoTRIgine 25 MG TABLET PO SCH ×2 (08:16→20:08)
[2017-01-02] MEDS: ASCORBIC ACID 500 MG TABLET PO SCH (08:16)
[2017-01-02] MEDS: MULTIVITAMINS,THERAPEUTIC 1 UDTAB TABLET PO SCH (08:16)
--- NOTE | 2017-01-02 12:05 | NUR ---
RN NOTES CALLED RADIOLOGY TO FF UP CT GUIDED LUNG BX. SPOKE WITH CARTER, PER CARTER SHE WILL CALL BACK
--- NOTE | 2017-01-02 12:25 | NUR ---
RN NOTES SPOKE WITH CONOR FROM RADIOLOGY. PER CARTER CT GUIDED LUNG BX MOST LIKELY WILL NOT HAPPEN TODAY. DR BANGURA MADE AWARE
[2017-01-02] MEDS: CARVEDILOL 6.25 MG TABLET PO SCH ×2 (12:59→20:08)
[2017-01-02 15:54] LABS: TOTAL VOLUME,BODY FLUID 410 mL
[2017-01-02 15:55] LABS: MONOCYTES,BODY FLUID 6 %; POLYNUCLEAR, BODY FLUID 78 % (0-25); WBC, BODY FLUID 2020 /cu. mm. (0-200)
[2017-01-02 16:00] VITALS: BP 103/60
[2017-01-02] MEDS: oxyCODONE IR immediate release 5 MG CAPSULE PO PRN (16:52)
--- NOTE | 2017-01-02 17:30 | NUR ---
RN NOTE: PT REFUSED INSULIN COVERAGE FOR BLOOD SUGAR 150MG/ML; PER PT "I DID THAT LAST NIGHT AND MY BLOOD SUGAR WENT BELOW 60." EDUCATED, STILL REFUSED.
[2017-01-02 20:00] VITALS: BP 91/55
[2017-01-02] MEDS: HYDROCODONE/APAP 5/325MG 1 EACH TABLET PO PRN (20:05)
--- NOTE | 2017-01-02 20:30 | NUR ---
RN NOTES PT SAT ON CHAIR WHILE WATCHING TV AOX4 NO ACUTE RESP DISTRESS. NO SEIZURE SATING 97% IN RA. IV SITE ON LFA G 22 RUNNING WITH NS @ 75 CC/HR INTACT AND PATENT. NO INFILTRATION WHEN FLUSHED. PT COMPLAINING OF PAIN AT HIS BACK PER PT DUE TO HIS THORACENTESIS THAT WAS DONE EARLIER. DUE PAIN MEDICINE GIVEN ORDERED. WILL RECHECKED AFTER 30 MINUTES. AFEBRILE. KEPT PT CLEAN AND COMFORTABLE IN BED. WILL CONTINUE TO MONITOR. CALL LIGHT KEPT WITHIN EASY REACH ENCOURAGED AND REMINDED TO USED FOR ASSISTANCE. WILL CONTINUE TO MONITOR.
--- NOTE | 2017-01-02 20:34 | NUR ---
RN NOTES NO IVF RUNNING. PT IV SITE REMAINED INTACT AND PATENT BUT NO IVF RUNNING.
[2017-01-02 20:47] LABS: GLUCOSE,BODY FLUID 115 mg/dL; PROTEIN, BODY FLUID 4.6 G/DL
[2017-01-02] MEDS: INSULIN DETEMIR 100 UNIT/ML CARTRIDGE SQ SCH (21:42)
[2017-01-03] MEDS: BLOOD SUGAR DIAGNOSTIC 1 EACH STRIP IN SCH ×4 (00:05→17:33)
[2017-01-03] MEDS: INSULIN REGULAR, HUMAN 100 UNIT/ML 3 ML VIAL SQ PRN (00:06)
--- NOTE | 2017-01-03 00:06 | NUR ---
RN NOTES PT BS 194 MG/DL PT REFUSED TO HAVE INSULIN PER SLIDING SCALE OF 3 UNITS. PER PT HIS BS WILL DROP IN AM LIKE BEFORE. PT IS AOX4 ABLE TO MAKE KNOWN NEEDS AWARE IN REGARDS OF HIS HEALTH.
[2017-01-03 04:00] VITALS: BP 108/69
[2017-01-03 06:43] LABS: BASOPHILS % (AUTO) 0.4 % (0.0-2.0); EOSINOPHILS # (AUTO) 0.4 /CMM (0.0-0.7); EOSINOPHILS % (AUTO) 7.7 % (0.0-6.0); HEMATOCRIT 29 % (39-51); HEMOGLOBIN 9.4 g/dL (13.5-17.5); LYMPHOCYTES # (AUTO) 1.4 /CMM (0.8-4.8); LYMPHOCYTES % (AUTO) 27.9 % (20.0-44.0); MEAN CORPUSCULAR HEMOGLOBIN 24 PG (26.0-33.0); MEAN CORPUSCULAR HGB CONC 32 g/dl (31.0-36.0); MEAN CORPUSCULAR VOLUME 77 fL (80-96); MONOCYTES # (AUTO) 0.5 /CMM (0.1-1.30); MONOCYTES % (AUTO) 9.4 % (2.0-12.0); NEUTROPHILS # (AUTO) 2.8 /CMM (1.8-8.9); NEUTROPHILS % (AUTO) 54.6 % (43.0-81.0); PLATELET COUNT (AUTO) 257 /CMM (150-450); RDW COEFFICIENT OF VARIATION 16.4 (11.5-15.0); RED BLOOD CELL COUNT(AUTO) 3.84 MIL/uL (4.5-6.0); WHITE BLOOD COUNT (AUTO) 5.2 K/uL (4.3-11.0)
[2017-01-03] MEDS: INSULIN ASPART NOVOLOG 100 UNIT/ML CARTRIDGE SQ SCH ×3 (06:49→17:30)
--- NOTE | 2017-01-03 07:00 | NUR ---
RN NOTES PT ASLEEP WELL ON BED. NO SOB OR ACUTE RESP DISTRESS SATING WELL IN RA. DENIES PAIN AFTER TAKEN PAIN MEDICINE LAST NIGHT. PT WITH AN EPISODE OF REFUSING INSULIN PER PATIENT HIS BS ITS JUST GONNA DROP WHEN GIVING ALL INSULIN. PT IS VERY AOX4 AWARE REGARDING RISK AND BENEFITS OF MEDICINE AND HEALTH. ALL NEEDS ATTENDED. DUE MEDICINE GIVEN ORDERED. NO HYPO OR HYPERGLYCEMIA NOTED. KEPT PT CLEAN AND DRY ENDORSED CONTINUITY OF CARE TO AM NURSE.
[2017-01-03 07:05] LABS: CALCIUM, SERUM 8.6 mg/dL (8.5-10.1); CREATININE 1.5 mg/dL (0.6-1.3); POTASSIUM 4.3 mmol/L (3.5-5.1)
[2017-01-03 08:00] VITALS: BP 94/51
--- NOTE | 2017-01-03 08:00 | NUR ---
RN INITIAL NOTE RECEIVED PT IN BED, RESTING COMFORTABLY. RESPIRATIONS ARE EVEN AND UNLABORED. NO S/S OF RESPIRATORY DISTRESS OR SOB, SATING WELL ON ROOM AIR. SKIN IS WARM AND DRY TO TOUCH. NO S/S OF PAIN OR DISCOMFORT. IV SITE C/D/I. FLUSHED AND PATENT. SAFETY MEASURES IMPLEMENTED. BED IN LOCKED, LOW POSITION WITH TWO RAILS UP. CALL LIGHT WITHIN REACH.
[2017-01-03] MEDS: METFORMIN 500 MG TABLET PO SCH ×3 (08:39→17:33)
[2017-01-03] MEDS: PANTOPRAZOLE 40 MG VIAL IV SCH ×2 (08:39→21:18)
[2017-01-03] MEDS: ASCORBIC ACID 500 MG TABLET PO SCH (08:39)
[2017-01-03] MEDS: SUCRALFATE 1 G/10 ML UDC PO SCH ×4 (08:39→21:19)
[2017-01-03] MEDS: MULTIVITAMINS,THERAPEUTIC 1 UDTAB TABLET PO SCH (08:40)
[2017-01-03] MEDS: LamoTRIgine 25 MG TABLET PO SCH ×2 (08:40→21:19)
[2017-01-03] MEDS: CARVEDILOL 6.25 MG TABLET PO SCH ×2 (08:41→21:19)
--- NOTE | 2017-01-03 09:00 | NUR ---
RN NOTE HELD METFORMIN PER ORDER. [address]
[2017-01-03] MEDS: HYDROCODONE/APAP 5/325MG 1 EACH TABLET PO PRN ×2 (12:58→17:34)
[2017-01-03] MEDS ORDERED: CARV6.252 PO (13:38)
[2017-01-03] MEDS ORDERED: SUCR1ORA6 PO (13:38)
[2017-01-03] MEDS ORDERED: Ergocalciferol PO (13:38)
[2017-01-03] MEDS: ONDANSETRON HCL/PF 4 MG/2 ML VIAL IVP PRN (13:50)
[2017-01-03 16:00] VITALS: BP 136/86
--- NOTE | 2017-01-03 17:00 | NUR ---
RN NOTE HELD NOVALOG PER PT. BLOOD GLUCOSE 168. GAVE METFORMIN
--- NOTE | 2017-01-03 19:15 | NUR ---
RN CLOSING NOTE PT SITTING IN CHAIR, COMFORTABLY. WILL GIVE REPORT TO PM RN FOR SULMA
--- NOTE | 2017-01-03 19:40 | NUR ---
RN NOTES SAT ON CHAIR WHILE WATCHING TV AND PLAYING [employer] AOX4 NO ACUTE RESP DISTRESS. NO EPISODE OF SEIZURE SATING WELL AT 99% IN RA. IV SITE ON LFA G 22 INTACT AND PATENT. NO INFILTRATION WHEN FLUSHED. DENIES PAIN AT THIS TIME AFEBRILE. KEPT PT CLEAN AND COMFORTABLE. CALL LIGHT KEPT WITHIN EASY REACH ENCOURAGED TO USED FOR ASSISTANCE. ALL NEEDS ATTENDED. WILL CONTINUE TO MONITOR.
[2017-01-03 20:00] VITALS: BP 113/59
[2017-01-03 20:34] VITALS: BP 113/59
[2017-01-03] MEDS: oxyCODONE IR immediate release 5 MG CAPSULE PO PRN (21:22)
[2017-01-03] MEDS: INSULIN DETEMIR 100 UNIT/ML CARTRIDGE SQ SCH (21:29)
[2017-01-04 04:00] VITALS: BP 105/65
[2017-01-04] MEDS: BLOOD SUGAR DIAGNOSTIC 1 EACH STRIP IN SCH ×5 (06:25→17:08)
--- NOTE | 2017-01-04 06:40 | NUR ---
RN NOTES ASLEEP WELL ABOUT 8 HOURS. WITHOUT ANY SIGNIFICANT CHANGE OF CONDITION SHOWS DENIES PAIN AFTER PAIN MEDICINE GIVEN LAST NIGHT. AFEBRILE. NO ACTIVE BLEEDING NOTED. NO N/V/D NO CHEST PAIN. BREATHING EVEN AND UNLABORED IN RA SATING 98%. IV SITE INTACT AND PATENT. NO S/S OF HYPO OR HYPERGLYCEMIA. ALL NEEDS ATTENDED. KEPT PT CLEAN AND COMFORTABLE. WILL ENDORSED CONTINUITY OF CARE TO AM NURSE.
[2017-01-04] MEDS: ONDANSETRON HCL/PF 4 MG/2 ML VIAL IVP PRN (06:47)
[2017-01-04] MEDS: oxyCODONE IR immediate release 5 MG CAPSULE PO PRN (06:48)
[2017-01-04 07:00] LABS: BASOPHILS % (AUTO) 0.3 % (0.0-2.0); EOSINOPHILS # (AUTO) 0.4 /CMM (0.0-0.7); EOSINOPHILS % (AUTO) 7.2 % (0.0-6.0); HEMATOCRIT 28 % (39-51); LYMPHOCYTES # (AUTO) 1.7 /CMM (0.8-4.8); LYMPHOCYTES % (AUTO) 28.2 % (20.0-44.0); MEAN CORPUSCULAR HEMOGLOBIN 25 PG (26.0-33.0); MEAN CORPUSCULAR HGB CONC 33 g/dl (31.0-36.0); MEAN CORPUSCULAR VOLUME 77 fL (80-96); MONOCYTES # (AUTO) 0.5 /CMM (0.1-1.30); MONOCYTES % (AUTO) 8.2 % (2.0-12.0); NEUTROPHILS # (AUTO) 3.4 /CMM (1.8-8.9); NEUTROPHILS % (AUTO) 56.1 % (43.0-81.0); PLATELET COUNT (AUTO) 222 /CMM (150-450); RDW COEFFICIENT OF VARIATION 16.2 (11.5-15.0); RED BLOOD CELL COUNT(AUTO) 3.57 MIL/uL (4.5-6.0); WHITE BLOOD COUNT (AUTO) 6.1 K/uL (4.3-11.0)
--- NOTE | 2017-01-04 07:00 | NUR ---
RN NOTES PT REQUESTED TO BE SHAVED AT THIS TIME WHILE SUDDENLY HE FELT NAUSEATED AND PAIN ON HIS SHOULDER BLADE PRN MEDICINE GIVEN ORDERED WILL MONITOR AFTER 30 MINUTES.
[2017-01-04] MEDS: INSULIN ASPART NOVOLOG 100 UNIT/ML CARTRIDGE SQ SCH ×3 (07:03→17:10)
--- NOTE | 2017-01-04 07:15 | NUR ---
RN MS INITIAL NOTES RECEIVED REPORT FROM PM NURSE. PT RESTING IN BED, AWAKE AND ALERT X3, ON RA SAT ABOVE 97%, NO SOB OR ACUTE DISTRESS, LT FA 22G SL INTACT NO S.S OF INFILTRATION, ALL NEEDS MET, ALL SAFETY MEASURES INITIATED, SIDE RAILS X2, BED LOW AND LOCKED, CALL LIGHT WITHIN REACH, WILL CONTINUE TO MONITOR.
[2017-01-04] MEDS: CARVEDILOL 6.25 MG TABLET PO SCH ×2 (07:51→21:13)
[2017-01-04 08:00] VITALS: BP 99/62
--- NOTE | 2017-01-04 08:25 | NUR ---
RN MS NOTES PER DR MONTOYA ORDER PT WILL BE GOING TO [facility] TOMORROW 01-05-17 FOR CARDIAC CATH.
[2017-01-04] MEDS: SUCRALFATE 1 G/10 ML UDC PO SCH ×4 (08:43→21:12)
[2017-01-04] MEDS: LamoTRIgine 25 MG TABLET PO SCH ×2 (08:43→21:12)
[2017-01-04] MEDS: MULTIVITAMINS,THERAPEUTIC 1 UDTAB TABLET PO SCH (08:43)
[2017-01-04] MEDS: METFORMIN 500 MG TABLET PO SCH ×2 (08:43→17:08)
[2017-01-04] MEDS: ASCORBIC ACID 500 MG TABLET PO SCH (08:43)
[2017-01-04] MEDS: PANTOPRAZOLE 40 MG VIAL IV SCH ×2 (08:43→21:12)
[2017-01-04 09:42] LABS: CALCIUM, SERUM 8.3 mg/dL (8.5-10.1); CREATININE 1.2 mg/dL (0.6-1.3); POTASSIUM 4.3 mmol/L (3.5-5.1)
[2017-01-04] MEDS ORDERED: ASPIRIN EC 325 MG TABLET.DR PO ONE (10:00)
--- NOTE | 2017-01-04 10:19 | NUR ---
RN MS NOTES WILL HOLD FOR NOW ANY ASPIRIN SINCE PT WILL HAVE CARDIAC CATH TOMORROW AM.
--- NOTE | 2017-01-04 12:00 | NUR ---
RN MS NOTES PTS LAST BG 169 MG/DL, PT REFUSED NOVOLOG AND NOVOLIN, STATES HE WILL DROP VERY LOW, NO INSULIN GIVEN TO PT AT THIS TIME.
[2017-01-04 16:00] VITALS: BP 113/65
--- NOTE | 2017-01-04 16:02 | NUR ---
RN MS ENDING NOTES PT STABLE FOR DC, EXIT CARE PROVIDED AND TEACHING DONE, REPORT GIVEN TO YSABEL AT [facility], PT VS STABLE, NO ACUTE DISTRESS NOTED, BELONGINGS LIST COMPLETED, PT REFUSED TO HAVE WOUND PICTURES TAKEN, ID BAND REMOVED, PT SLIGHTLY AGITATED AT THIS TIME, IV SITE REMOVED, NO S./S OF INFILTRATION, MED PRESCIPTION LIST PROVIDED, WOUND TX PLAN PROVIDED WITH DC PAPERWORK, ALL DUE MEDS GIVEN, ALL NEEDS MET, STABLE FOR DC WITH MED RESPONSE.
--- NOTE | 2017-01-04 16:57 | NUR ---
GAURAV CONWAY NOTES WILL AWAIT FOR [facility] TO FIND ROOM FOR PT [phone] ADMITTING WITH GAURAV ATKINSON, THE AMBULANCE ON WILL CALL IS [facility] [phone].
--- NOTE | 2017-01-04 17:35 | NUR ---
GAURAV MS NOTES PTS BG WAS 178 MG/DL DID NOT GIVE ANY INSULIN PER PTS REQUEST.
--- NOTE | 2017-01-04 18:28 | NUR ---
RN MS NOTES CALLED AND GAVE REPORT TO BERNARD WEISS RN, PT WILL HAVE [facility] DIABETOLOGIST AT 0730 PM, ALL DUE MEDS GIVEN, ALL NEEDS MET, WILL ENDORSE TO PM NURSE.
[2017-01-04 20:00] VITALS: BP 128/77
--- NOTE | 2017-01-04 20:00 | NUR ---
MS RN NOTES AWAKE & RESPONSIVE. NOT IN ANY DISTRESS. NO SOB NOTED. DENIES ANY PAIN OR DISCOMFORT AT THIS TIME. WITH IV-HL PATENT & INTACT. CALL LIGHT WITHIN REACH. BED IN LOWEST POSITION. SR UP X 2 FOR SAFETY. ALL NEEDS ATTENDED. WILL CONTINUE TO MONITOR. CALLED [facility]. AMBULANCE WILL COME IN BY [phone] TO [phone].
[2017-01-04 21:13] VITALS: BP 128/77
--- NOTE | 2017-01-04 21:35 | NUR ---
MS RN NOTES AMBULANCE CAME IN TO DATA SCIENCES DIRECTOR PT. PT NOT IN ANY DISTRESS. NO SOB NOTED. DUE MEDS GIVEN PER PT'S REQUEST. REPORT GIVEN TO AMBULANCE PERSONNEL FOR CONTINUITY OF CARE. REPORT GIVEN BY AM RN TO [facility].
[2017-01-04] MEDS ORDERED: ATORVASTATIN 40 MG TABLET PO SCH (22:00)
[2017-01-05] MEDS ORDERED: ASPIRIN 81 MG TAB.CHEW PO SCH (09:00)
== END 2017-01-04 22:00 | disposition short-term general hospital (02) | DRG 53 ==
LOC: ER 11:17 → TELE1 14:06 → MEDSG1 12-30 09:42 → TELE1 12-30 11:37 → MEDSG1 01-01 11:38
PROVIDERS: ADMIT Nurse Practitioner Acute Care; ATTEND Nurse Practitioner Acute Care
PROC: 0DB38ZX Excision of Lower Esophagus, Via Natural or Artificial Opening Endoscopic, Diagnostic (ICD-10-PCS; principal; 2016-12-29 14:00)
PROC: 30233N1 Transfusion of Nonautologous Red Blood Cells into Peripheral Vein, Percutaneous Approach (ICD-10-PCS; principal; 2016-12-29 14:00)
PROC: 0W9B3ZZ Drainage of Left Pleural Cavity, Percutaneous Approach (ICD-10-PCS; 2017-01-02)
DX: G40.909 Epilepsy, unspecified, not intractable, without status epilepticus (principal); I21.4 Non-ST elevation (NSTEMI) myocardial infarction; N17.0 Acute kidney failure with tubular necrosis; E43 Unspecified severe protein-calorie malnutrition; I50.33 Acute on chronic diastolic (congestive) heart failure; K92.2 Gastrointestinal hemorrhage, unspecified; E55.9 Vitamin D deficiency, unspecified; J90 Pleural effusion, not elsewhere classified; K22.70 Barrett's esophagus without dysplasia; E11.9 Type 2 diabetes mellitus without complications; D50.9 Iron deficiency anemia, unspecified; I25.10 Atherosclerotic heart disease of native coronary artery without angina pectoris; K40.20 Bilateral inguinal hernia, without obstruction or gangrene, not specified as recurrent; G89.4 Chronic pain syndrome; Z87.891 Personal history of nicotine dependence; Z86.73 Personal history of transient ischemic attack (TIA), and cerebral infarction without residual deficits; Z86.19 Personal history of other infectious and parasitic diseases; M06.9 Rheumatoid arthritis, unspecified; Z89.431 Acquired absence of right foot; I87.2 Venous insufficiency (chronic) (peripheral); I89.0 Lymphedema, not elsewhere classified; I34.0 Nonrheumatic mitral (valve) insufficiency; J45.909 Unspecified asthma, uncomplicated; J98.11 Atelectasis; M43.06 Spondylolysis, lumbar region; Z79.82 Long term (current) use of aspirin; I11.0 Hypertensive heart disease with heart failure
CPT/HCPCS: 36415; 70450-TC; 71010-TC; 71270-TC; 75574; 76700-TC; 76942-TC; 80048-TC; 80053-TC; 80061-TC; 80076-TC; 82164; 82306; 82728-TC; 82962-TC; 83540-TC; 83615-TC; 83735-TC; 84100-TC; 84155; 84165; 84443-TC; 84484-TC; 84550-TC; 85025-TC; 85045-TC; 85652-TC; 85730-TC; 86850-TC; 86921-TC; 87070-TC; 87075-TC; 87081-TC; 87102-TC; 87116; 87206; 88305-TC; 88312-TC; 88313-TC; 88342; 89051-TC; 93307-TC; A4216; A4606; A6402; C9113; J1815; J2060; J2405; J2704; J3475; J3490; J7030; J7050; J7060; P9016-BL; Q9967; Z7610